=== PATIENT | female | born 1975 | race Caucasian/White ===

== ENCOUNTER → 2016-11-17 08:44 | Outpatient (CLI) | payer MEDICAID | LOC: D.MAMMO 08:44 | DX: Z12.31 Encounter for screening mammogram for malignant neoplasm of breast (principal) ==

== ENCOUNTER → 2017-01-02 16:29 | Outpatient (CLI) | payer MEDICAID | END | disposition home or self-care (01) | LOC: D.MAMMO 12-13 13:00 | DX: R92.8 Other abnormal and inconclusive findings on diagnostic imaging of breast (principal) ==